=== PATIENT | male | born 1970 | race Caucasian/White ===

== ENCOUNTER → 2018-01-23 | Outpatient (CLI) | payer OTHER ==
[~2018-01-23] MED LIST: 0.9 % SODIUM CHLORIDE 10 ML VIAL ONE; DEXAMETHASONE SOD PHOS 4 MG/ML VIAL ONE; IOHEXOL 300 MG/ML 50 ML VIAL. ONE; LIDOCAINE 1% PF 30 ML VIAL. ONE
== END | disposition home or self-care (01) ==
LOC: SURG 13:26
PROVIDERS: ATTEND Anesthesiology
DX: M54.12 Radiculopathy, cervical region (principal); I10 Essential (primary) hypertension; J45.909 Unspecified asthma, uncomplicated; M19.90 Unspecified osteoarthritis, unspecified site; Z90.49 Acquired absence of other specified parts of digestive tract; Z98.890 Other specified postprocedural states; Z79.899 Other long term (current) drug therapy; G89.4 Chronic pain syndrome
CPT/HCPCS: 62321; J1100; J2001; Q9967

== ENCOUNTER → 2019-04-18 | Outpatient (CLI) | payer OTHER ==
[~2019-04-18] MED LIST changes: +ALBU2.5V8 IH; +BUDE10.22 IH; +CETI10TA24 PO; -DEXAMETHASONE SOD PHOS 4 MG/ML VIAL ONE; +ESCITALOPRAM OX20 MG PO; +FLUT100D IH; +GABA600T7 PO; +HYDR-2155 PO; +HYDR25TA PO; +LACT1CAP29 PO; +METO-239 PO; +MIRT15TA3 PO; +MONT10TA80 PO; +PRAZ2CAP2 PO; +RIZA10TA PO; +SILD100T PO; +TOPI100T8 PO; +TRAZ-125 PO; +methylPREDNISolone ACETATE 80 MG/ML VIAL. ONE
[2019-04-18 14:46] VITALS: BP 122/84
== END | disposition home or self-care (01) ==
LOC: SURG 13:10
PROVIDERS: ATTEND Anesthesiology Pain Medicine
DX: M51.16 Intervertebral disc disorders with radiculopathy, lumbar region (principal); M54.5 Low back pain; M96.1 Postlaminectomy syndrome, not elsewhere classified; J45.909 Unspecified asthma, uncomplicated; I10 Essential (primary) hypertension; M19.90 Unspecified osteoarthritis, unspecified site; J32.8 Other chronic sinusitis; F43.10 Post-traumatic stress disorder, unspecified; Z98.890 Other specified postprocedural states; Z90.49 Acquired absence of other specified parts of digestive tract; Z79.899 Other long term (current) drug therapy; Z98.1 Arthrodesis status
CPT/HCPCS: 62323; J1040; J2001; Q9967